=== PATIENT | male | born 1955 | race Caucasian/White ===

== ENCOUNTER → 2020-06-23 11:03 | Outpatient (CLI) | payer MEDICARE, SELFPAY ==
--- NOTE | ~2020-06-23 | US_ITS ---
US renal BI 06/23/2020 11:24 Procedure: Realtime transabdominal ultrasound of the kidneys and bladder. Indication: Abnormal renal function tests Comparison: No prior studies for comparison. Findings: Renal echotexture is normal bilaterally without hydronephrosis, contour deforming mass or r enal calculus. There is a left renal cyst measuring 3.1 cm. The right kidney measures 9.2 cm and left kidney measures 10.6 cm. Bladder within normal limits. Impression: 1: Left renal cyst measuring up to 3.1 cm. Reviewed, dictated and finalized at location A. [facility] Impression: 1: Left renal cyst measuring up to 3.1 cm.
== END ==
PROVIDERS: Visit Provider Internal Medicine Nephrology
DX: R94.4 Abnormal results of kidney function studies (principal); N28.1 Cyst of kidney, acquired
CPT/HCPCS: 76775

== ENCOUNTER 2021-01-18 14:30 | Outpatient (RCR) | payer MEDICARE, SELFPAY ==
[2020-12-22 11:11] VITALS: BMI 26.6
[2020-12-22 11:14] VITALS: BMI 26.6
== END 2021-03-15 10:09 | disposition home or self-care (01) ==
LOC: ANHDMC 14:30
PROVIDERS: Visit Provider Physician Assistant
DX: E11.65 Type 2 diabetes mellitus with hyperglycemia (principal); Z71.3 Dietary counseling and surveillance; Z71.89 Other specified counseling
CPT/HCPCS: 97802; 99199; G0108; G0109

== ENCOUNTER 2023-05-29 16:37 | Emergency (ER) | payer MEDICARE, SELFPAY ==
[2023-05-29 16:45] VITALS: BP 145/67; PULSE 68; RESP 20; TEMP 36.5; O2SAT 100
--- NOTE | 2023-05-29 17:19 | ED.SKABFB ---
HPI - Skin/Abscess/Foreign Bdy General Chief complaint: Skin/Abscess/Foreign Body Stated complaint: bite on left abdomen Time Seen by Provider: 05/29/23 17:19 Source: patient Mode of arrival: ambulatory Limitations: no limitations History of Present Illness HPI narrative: 68 yo M presents with c/o insect bite to L lower ABD for 2 to 3 days. Tendern on palpation. Redness increasing. Afebrile. All systems reviewed and negative except as noted above. Related Data Home Medications Medication Instructions Recorded Confirmed atorvastatin 40 mg tablet 40 mg PO DAILY 05/29/23 05/29/23 lisinopril 10 mg tablet 10 mg PO DAILY 05/29/23 05/29/23 metformin 500 mg tablet,extended 2,000 mg PO DAILY 05/29/23 05/29/23 release 24 hr Allergies Allergy/AdvReac Type Severity Reaction Status Date / Time No Known Allergies Allergy Verified 05/29/23 16:58 Review of Systems Review of Systems: CONSTITUTIONAL: Denies fever, chills, or sweats. EYES: Denies visual changes, redness, or discharge. ENT: Denies rhinorrhea, congestion, sore throat, or otalgia. CARDIOVASCULAR: Denies chest pain, palpitations, or edema. RESPIRATORY: Denies cough or dyspnea. GASTROINTESTINAL: Denies abdominal pain, nausea, vomiting, or diarrhea. GENITOURINARY: Denies dysuria or hematuria. SKIN: Denies rash or itching. Reports redness, swelling and tenderness to left lower abdomen. MUSCULOSKELETAL: Denies back pain, joint pain, or myalgia. NEUROLOGIC: Denies headache, numbness, or weakness. PSYCHIATRIC: Denies anxiety or depression. All other systems reviewed are negative, except as documented in HPI. [facility] Past Medical History Medical History BMI 27.0-27.9,adult GERD without esophagitis Hyperlipidemia Hypertension Hypertension Loss of teeth due to extraction Type 2 diabetes mellitus with hyperglycemia Surgical History Surgical History No significant past surgical history Family History Family History Mother Diabetes mellitus Father Hypertension Social History Social History Smoking packs per day: 0.5 Smoking cigarettes per day: 10.0 Years smoked: 40 Smoking pack-years: 20.00 Smoking status: Former smoker Second hand tobacco smoke exposure: No Smoking end date: 05/06/11 Alcohol intake: current Alcohol use details: Occasional. Substance use: never Substance use type: does not use Lack of Transportation: No Lack of Food: Never True Current Housing: I Have Housing Concerned About Future Housing: No Difficulty Paying Gas/Electric Bills: No Difficulty Paying for Meds: No Currently Unemployed: No Education: Grade School Difficulty w/ Childcare or Family Care: No Living arrangements: alone Occupation/Education: retired Additional occupation/education comments: Patient works parts puller. Gender identity (if verbalized by the patient): Male Spiritual care concerns: No Agree to blood products: Yes Comments At time of signature, agree with nursing past medical, surgical, social and family history. There is no relevant family history pertinent to the presenting complaint. Exam Narrative: GENERAL: This is a well-nourished, well-developed patient, in no apparent distress. HEAD: normocephalic, atraumatic. EYES: PERRL. Sclera clear/white. Vision is grossly intact. EARS: External ears normal NOSE: External nose normal NECK: Neck supple, non-tender without lymphadenopathy, masses or thyromegaly. CARDIOVASCULAR: Regular rate and rhythm without murmurs, gallops, or rubs. RESPIRATORY: Clear to auscultation. Breath sounds equal bilaterally. No wheezes, rales, or rhonchi. SKIN: warm, Dry, intact with no suspicious rash, good texture and turgor. erythema to skin of L lower
== END 2023-05-29 17:31 | disposition home or self-care (01) ==
PROVIDERS: Emergency Provider Nurse Practitioner Family; PCP Family Medicine
DX: S30.861A Insect bite (nonvenomous) of abdominal wall, initial encounter (principal); W57.XXXA Bitten or stung by nonvenomous insect and other nonvenomous arthropods, initial encounter; Z87.891 Personal history of nicotine dependence; K21.9 Gastro-esophageal reflux disease without esophagitis; E78.5 Hyperlipidemia, unspecified; I10 Essential (primary) hypertension; E11.9 Type 2 diabetes mellitus without complications; Z79.4 Long term (current) use of insulin
CPT/HCPCS: 99213; G0463